=== PATIENT | female | born 1945 | race Caucasian/White ===

== ENCOUNTER 2018-04-25 20:58 | Emergency (ER) | payer OTHER ==
[~2018-04-25] VITALS: Ht 154.9 cm; Wt 49.9 kg
[~2018-04-25 20:58] MED LIST: METO25TA4 PO; OXYC10TA44 PO; PRED15SO; SIMV10TA73; TERI600S SUBCUT; TRAM-297
[2018-04-25 23:32] VITALS: BP 157/98
== END 2018-04-25 23:45 | disposition left against medical advice (07) ==
LOC: EDBD 20:58 → ER 21:03
DX: M54.6 Pain in thoracic spine (principal); Z53.21 Procedure and treatment not carried out due to patient leaving prior to being seen by health care provider

== ENCOUNTER 2018-12-04 14:36 | Emergency (ER) | payer OTHER ==
[~2018-12-04] VITALS: Ht 157.5 cm; Wt 45.4 kg
[~2018-12-04 14:36] MED LIST changes: +METO25TA36 PO; -METO25TA4 PO
[2018-12-04] MEDS ORDERED: DEXTROSE (50%) 50ML SYRG IV ONE ×2 (15:00→22:00)
[2018-12-04] MEDS ORDERED: SODIUM CHLORIDE 0.9% 1,000 ML IVB ONE (15:09)
[2018-12-04 15:35] LABS: Basophils # (auto) 0 uL; Basophils % (auto) 1.3 % (0.0-2.0); Eosinophils # (auto) 0.3 uL; Eosinophils % (auto) 8.7 % (0.0-7.0); Hematocrit 34.2 % (36.0-46.0); Hemoglobin 11.3 g/dL (12.2-16.2); Lymphocytes # (auto) 0.9 uL; Lymphocytes % (auto) 25.2 % (10.0-50.0); Mean Corpuscular Hemoglobin 31.5 pg (28.0-32.0); Mean Corpuscular Hgb Conc. 33.1 g/dL (32.0-36.0); Monocytes # (auto) 0.4 uL; Monocytes % (auto) 9.9 % (0.0-12.0); Neutrophils % (auto) 54.9 % (37.0-80.0); Nucleated Red Blood Cells % 0.1 %; Platelet Count (auto) 264 10^3/uL (140-450); Red Blood Cells 3.59 10^6/uL (4.0-5.20); White Blood Cell 3.7 10^3/uL (4.4-10.8)
[2018-12-04 15:49] LABS: Red Cell Distribution Width 20.6 % (11.8-14.3)
[2018-12-04 15:52] LABS: Albumin 2.2 g/dL (3.4-5.0); Calcium 8.1 mg/dL (8.5-10.1); Magnesium 2.1 mg/dL (1.6-2.6); Potassium 3.9 mmol/L (3.5-5.1)
[2018-12-04 15:55] LABS: BUN/Creatinine Ratio 22.5; Bilirubin, Total 0.7 mg/dL (0.2-1.0); INR 1.06 (0.9-1.15); Partial Thromboplastin Time 27.9 sec (23.64-32.05); Total Protein 6.2 g/dL (6.4-8.2)
[2018-12-04 17:09] LABS: Urine Bacteria NONE SEEN /hpf (None Seen); Urine Blood Negative /uL (Negative); Urine Specific Gravity 1.013 (1.001-1.035); Urine WBC 30 /hpf (0 - 5)
[2018-12-04] MEDS ORDERED: cefTRIAXone 1GM/50ML D5W 50 ML IV ONE (17:30)
[2018-12-04] MEDS ORDERED: cefTRIAXone SOD 1,000 MG VL ONE (17:48)
[2018-12-04 22:55] VITALS: BP 92/51
== END 2018-12-04 23:51 | disposition home or self-care (01) ==
LOC: EDBD 14:36 → ER 14:41
DX: N39.0 Urinary tract infection, site not specified (principal); G30.8 Other Alzheimer's disease; F02.80 Dementia in other diseases classified elsewhere, unspecified severity, without behavioral disturbance, psychotic disturbance, mood disturbance, and anxiety; E16.2 Hypoglycemia, unspecified; I10 Essential (primary) hypertension; F17.210 Nicotine dependence, cigarettes, uncomplicated; Z95.1 Presence of aortocoronary bypass graft; Z88.2 Allergy status to sulfonamides; Z91.040 Latex allergy status; Z79.899 Other long term (current) drug therapy
CPT/HCPCS: 36415; 51702; 71045; 80053; 81001; 82962; 83735; 85025; 85610; 85730; 93005; 94761; 96365; 96375; 96376; 99284; J0696; J7030; J7042